=== PATIENT | male | born 1980 | race Two or more races ===

== ENCOUNTER 2024-07-15 12:55 | Emergency (ER) | payer BC, OTHER ==
[2024-07-15 13:00] VITALS: BP 106/73; BMI 24.4
[2024-07-15] MEDS ORDERED: IBUPROFEN 600 MG TABLET (FP) PO ONE (14:00)
[2024-07-15] MEDS: ACETAMINOPHEN 500 MG TABLET (FP) PO ONE (14:03)
[2024-07-15] MEDS: IBUPROFEN 600 MG TABLET (FP) PO ONE (14:03)
[2024-07-15 14:26] VITALS: PULSE 100; RESP 20; TEMP 99.2
== END 2024-07-15 14:25 | disposition home or self-care (01) ==
LOC: JERFT 12:55
DX: R19.7 Diarrhea, unspecified (principal); B34.9 Viral infection, unspecified; R50.9 Fever, unspecified; M79.10 Myalgia, unspecified site; Z20.822 Contact with and (suspected) exposure to COVID-19
CPT/HCPCS: 0241U-QW; 71046-TC-FY; 99284-25